=== PATIENT | male | born 1960 | race Caucasian/White ===

== ENCOUNTER → 2016-10-29 | Outpatient (CLI) | payer MEDICARE, OTHER ==
[2016-10-29 16:42] LABS: Blood Urea Nitrogen 18 mg/dL (9-20); Non-African American GFR(MDRD) >60 (>60 ml/min/1.73 sqM)
--- NOTE | 2016-10-29 22:05 | CT ---
EXAMINATION TYPE: CT urogram wo/w con DATE OF EXAM: 10/29/2016 5:29 PM COMPARISON: NONE HISTORY: 55-year-old male with increased sensation of urination and hematuria TECHNIQUE: Contiguous axial scanning of the abdomen and pelvis performed without and with IV Contrast , patient injected with 100 mL of Omnipaque 300. Delayed images through the kidneys and bladder were obtained. Coronal/sagittal reconstructions performed. 3-D reconstructions generated on a dedicated in dependent workstation. CT DLP: 3931.7 mGycm Automated exposure control for dose reduction was used. FINDINGS: The heart is normal size with small anterior basilar pericardial fluid. Ascending aorta measures at t he upper limits of normal at 3.5 cm. Coronary vessel calcifications are present in remarkable for cor onary artery disease. Strandy atelectasis in the lung bases without pleural effusion. Postsurgical changes at the GE junction. No focal liver lesion or biliary ductal dilatation. Portal venous system is patent. Gallbladder, adrenal glands, spleen, and pancreas appear within normal limits. Symmetric uptake and excretion of contrast from the kidneys. In the anterior upper to mid pole right kidney, there is a subcentimeter hypodensity too small for accurate CT characterization, probable tin y cortical cyst. Otherwise, no discrete renal lesion is identified. No suspicious filling defects within the renal collecting system or along the ureters. A very short s egment of nonopacified ureter along the middle third segment without any abnormal soft tissue thicken ing seen. No dilated small bowel, free fluid, or free air. No significant stool burden. No pericolonic inflammatory change. No mesenteric or retroperitoneal lymphadenopathy. Bladder is nondistended. No filling defects seen along the posterior aspect of the opacified bladder. Prostate gland mildly enlarged at 4.1 cm wide with some central calcifications. No abnormal fluid co llection in the pelvis or pelvic lymphadenopathy seen. Bones: Degenerative changes at the SI joints and also within the lower lumbar spine. Trace grade 1 re trolisthesis at L1-L2 on a degenerative basis. No osseous destructive process. IMPRESSION: 1. MILD PROSTATOMEGALY AT 4.1 CM WIDE. 2. SUBCENTIMETER HYPODENSITY ANTERIOR RIGHT KIDNEY TOO SMALL FOR ACCURATE CT CHARACTERIZATION, LIKELY TINY CORTICAL CYST. 3. OTHERWISE, NO EVIDENCE FOR NEPHROLITHIASIS, HYDRONEPHROSIS, SUSPICIOUS RENAL LESION, OR ABNORMAL F ILLING DEFECT ALONG THE COLLECTING SYSTEMS.
== END | disposition home or self-care (01) ==
LOC: RADCTMAIN 16:03
PROVIDERS: ATTEND Urology
DX: R93.421 Abnormal radiologic findings on diagnostic imaging of right kidney (principal); N40.0 Benign prostatic hyperplasia without lower urinary tract symptoms; R31.0 Gross hematuria; Z88.1 Allergy status to other antibiotic agents
CPT/HCPCS: 82565; 84520; 74178; 36415; 74400; Q9967